=== PATIENT | male | born 1965 | race Caucasian/White ===

== ENCOUNTER → 2016-10-01 | Day surgery (SDC) | payer BC ==
--- NOTE | 2016-09-30 17:14 | Pre-Procedure Note/Attestation ---
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 I attest that, if there was a reasonable possibility of needing a blood transfusion, the patient (or the patient's legal sales representative [employer]) was given the [facility] standardized written summary, pursuant to the [place] Blood Safety Act ([place] Health and Safety Code # 1645, as amended). I attest that I re-evaluated the patient just prior to the surgery and that there has been no change in the patient's H&P,which has been done by Dr. Dustin Irby-faxed over last week to [facility] pre-op. KAVITHA THAKKAR Sep 30, 2016 17:14
[~2016-10-01] VITALS: Ht 177.8 cm; Wt 89.8 kg
[2016-10-01] VITALS (11 sets, daily range): BP systolic 95–147; BP diastolic 59–100
[~2016-10-01] MED LIST: AMLODIPINE-BEN1 EAC4 ORAL; Bupivacaine w/Epi 0.5% 30ml Vial INJ ONE; Dexamethasone 4mg/ml vial IVP ONE; Glycopyrrolate 0.2mg/ml 1ml Vial ONE; HYDROmorphone 1mg/ml Carpuject SUBQ PRN; Hydromorphone 0.5mg/0.5ml inj IVP PRN; LR 1000ml 1,000 ML IV SCH; LR 1000ml 1,000 ML IVLG SCH; LR 1000ml ONE; Labetalol 5mg/ml 20ml vial IV ONE; Labetalol 5mg/ml 20ml vial IV PRN; Lidocaine 1% 10mg/ml/Epi 0.005mg/ml 30ml vial INJ ONE; Meperidine 25mg/ml Inj IV PRN; Metoclopramide 10mg/2ml Inj IVP PRN; Midazolam 2mg/2ml Inj IVP PRN; Midazolam 2mg/2ml Inj ONE; Neostigmine 1mg/ml 10ml Inj ONE; Norco 5mg/325mg tab ORAL PRN; Propofol 10mg/ml 20ml IV ONE; Thrombin 5000 units TOPIC ONE; Zemuron 50mg/5ml Inj IV ONE; ceFAZolin 1gm/50ml Premix 50 ML IV ONE; ceFAZolin sod 1 GM in D5W 55 ML IV ONE; fentaNYL 100 mcg/2 mL IV ONE
--- NOTE | 2016-10-01 08:13 | Anethesia Preoperative Eval ---
Anesthesia Pre-op PMH/ROS General Date of Evaluation: Oct 01, 2016 Time of Evaluation: 07:30 Anesthesiologist: Soham ASA Score: ASA 2 Mallampati Score Class I : Soft palate, uvula, fauces, pillars visible Class II: Soft palate, uvula, fauces visible Class III: Soft palate, base of uvula visible Class IV: Only hard plate visible Mallampati Classification: Class III Surgeon: Hyacinth Diagnosis: Right tonsil mass Surgical Procedure: Excision of tonsil mass with frozen section Anesthesia History: none Allergies: Coded Allergies: No Known Allergies (Unverified , 09/30/16) Medications: see eMAR Past Medical History Cardiovascular: Reports: HTN, Denies: CAD, [place], arrhythmia, other, valve dz Pulmonary: Denies: COPD, [place], asthma, other Gastrointestinal/Genitourinary: Denies: CRI, ESRD, GERD, other Neurologic/Psychiatric: Denies: CVA, TIA, dementia, depression/anxiety, other Endocrine: Denies: DM, hypothyroidism, other, steroids HEENT: Denies: [place] (L), [place] (R), cataract (L), cataract (R), glaucoma, other Hematology/Immune: Denies: DVT, anemia, bleeding disorder, other Musculoskeletal/Integumentary: Denies: DDD, DJD, OA, RA, edema, other PMH Narrative: HTN PSxH Narrative: No prior surgery Anesthesia Pre-op Phys. Exam Physician Exam Last Vital Signs Date Time Temp Pulse Resp B/P Pulse Ox O2 Delivery O2 Flow Rate FiO2 10/01/16 06:36 98.4 72 18 130/90 95 Room Air Constitutional: NAD Neurologic: CN 2-12 intact Cardiovascular: RRR, no M/R/G Respiratory: CTA Gastrointestinal: S/NT/ND Airway Exam Mallampati Score: Class III MO: full ROM: full Teeth: intact Anesthesia Pre-op A/P Labs WNL Studies Pre-op Studies: EKG - NSR Risk Assessment & Plan Assessment: Right tonsil mass Plan: GETA, glide scope intubation Status Change Before Surgery: No Pre-Antibiotics Drug: Ancef Given Within 1 Hr of Incision: Yes Time Given: 07:45 LISA LEIJA M.D. Oct 01, 2016 08:13
--- NOTE | 2016-10-01 08:15 | Immediate Post-Op Evaluation ---
Immediate Post-Op Evalulation Immediate Post-Op Evalulation Procedure: Excision of tonsil mass with frozen section Date of Evaluation: Oct 01, 2016 Time of Evaluation: 09:00 IV Fluids: 750 Estimated Blood Loss: 10 Blood Pressure Systolic: 95 Blood Pressure Diastolic: 60 Pulse Rate: 80 Respiratory Rate: 21 O2 Sat by Pulse Oximetry: 100 Temperature (Fahrenheit): 97.0 Pain Score (1-10): 0 Nausea: No Vomiting: No Complications No complication Patient Status: awake, patent, extubated, none Hydration Status: adequate Drug: Ancef Given Within 1 Hr of Incision: Yes Time Given: 07:45 LISA LEIJA M.D. Oct 01, 2016 08:15
--- NOTE | 2016-10-01 08:33 | Brief Operative Note ---
Immediate Post Operative Note Operative Note Chief Complaint: Hypertrophied right tonsil Pre-op Diagnosis: Hypertrophied unilateral right tonsil Procedure: Frozen section bx of tonsil-right side Post-op Diagnosis: SCCA of right tonsil Surgeon: King Thakkar Second Time Worker: none Additional Surgeons: none Anesthesiologist: Soham Anesthesia: general Specimen: yes - Right tonsil Complications: none Condition: stable Estimated Blood Loss: volume - 10 cc Drains: none Implant(s) used?: No KAVITHA THAKKAR Oct 01, 2016 08:33
--- NOTE | 2016-10-01 08:37 | Discharge Instructions ---
Discharge Instructions Discharge Instructions Follow up with: next week-pt has appt Diet: full liquid Resume Normal Activity?: No Activity: light activity Pneumonia Vaccine: pt refused vaccine Influenza Vaccine (Mar to Aug): pt refused vaccine Follow Up Orders pt has printed instructions Return to Work/School on: Oct 15, 2016 For Congestive Heart Failure Reminder Report to your physician any weight gain of 5 pounds or more in one week. KAVITHA THAKKAR Oct 01, 2016 08:37
--- NOTE | 2016-10-01 08:57 | 48 Hour Post Anesthesia Eval ---
Post Anesthesia Evaluation Procedure: Excision of tonsil mass with frozen section Date of Evaluation: Oct 01, 2016 Time of Evaluation: 09:30 Blood Pressure Systolic: 108 0: 68 Pulse Rate: 75 Respiratory Rate: 18 O2 Sat by Pulse Oximetry: 98 Airway: patent Nausea: No Vomiting: No Pain Intensity: 0 Hydration Status: adequate Cardiopulmonary Status: Stable Mental Status/LOC: patient returned to baseline Follow-up Care/Observations: As per surgery Post-Anesthesia Complications: No anesthetic complication Follow-up care needed: N/A LISA LEIJA M.D. Oct 01, 2016 08:57
--- NOTE | 2016-10-01 15:48 | Operative Note - Dictated ---
DATE OF OPERATION: 10/01/2016 SURGEON: Davy Claros M.D. ANESTHESIOLOGIST: Rickey. AIR CARGO AGENT: None. ANESTHESIA: Oral endotracheal anesthesia and 10 mL 1% lidocaine 1000 epinephrine injector on the right tonsil. INDICATION FOR SURGERY: The patient with a large tonsillar mass, which is growing. It actually has grown twice its size since I last saw him approximately three weeks ago. PREOPERATIVE DIAGNOSIS: The patient with a large tonsillar mass, which is growing. It actually has grown twice its size since I last saw him approximately three weeks ago. POSTOPERATIVE DIAGNOSIS: Frozen section indicated of the squamous cell carcinoma. FINDINGS: As above. PROCEDURE: Biopsy of right superior tonsillar mass. TECHNIQUE: The patient prepped and draped in usual manner. The time-out was performed. All in the room agreed as to the proper equipment. Injection of the aforementioned lidocaine epinephrine after a McIvor mouth gag was placed. I utilized electrocautery and took out approximately 2 x 2 centimeter piece of tumor exophytic. It appeared to be cancer grossly and on frozen section that is what it was. Area was cauterized. McIvor mouth gag put back up after a minute and put back down, let it sit for about five minutes and then put back up, there was no bleeding. Sponge and needle count was correct. ESTIMATED BLOOD LOSS: 10 mL. COUNTS: None. DRAINS: None. Davy Claros M.D. DR: CONSTANCE JOB#: [id number] CC:
== END | disposition home or self-care (01) ==
LOC: SUR 05:52
DX: C09.9 Malignant neoplasm of tonsil, unspecified (principal); I10 Essential (primary) hypertension
CPT/HCPCS: 42800; J0690; J1170; J2250; J2405; J2704; J2710; J3010; J7120; 94003; 94150